=== PATIENT | female | born 1960 | race Caucasian/White ===

== ENCOUNTER 2023-04-18 17:06 | Outpatient (OUT) | payer OTHER, SELFPAY ==
--- NOTE | 2023-04-18 | XR_ITS ---
The [address] [address] Patient Name: CASS ANDERSON MRN: [id number] date: 1960 Sex: F Assigned Patient Location: [facility] Current Patient Location: ED.MAIN Accession/Order Number: [id number] Exam Date: 04/18/2023 17:20 Report Date: 04/18/2023 18:16 At the request of: YAO HARRINGTON Procedure: XR thoracic spine 3V EXAM: XR thoracic spine 3V, XR lumbar spine 2-3V HISTORY: M54.50, back pain COMPARISON: 12/30/2019 TECHNIQUE: Routine views of the XR thoracic spine 3V, XR lumbar spine 2-3V FINDINGS: Anatomy: 12 rib-bearing thoracic segments. 5 non rib-bearing lumbar segments. Bones: No acute fracture or dislocation. No suspicious lytic or sclerotic lesion. Mild multilevel thoracic disc and endplate degeneration. Moderate L4-S1 facet hypertrophy. Mild L5-S1 disc height loss. Other: Aortic atherosclerosis. XR/XR thoracic spine 3V IMPRESSION: Mild to moderate thoracic lumbar spondylosis without acute findings. Electronically authenticated by: ANTONETTE FARRELL Date: 04/18/2023 18:16
--- NOTE | 2023-04-18 | XR_ITS ---
The [address] [address] Patient Name: CASS ANDERSON MRN: [id number] date: 1960 Sex: F Assigned Patient Location: [facility] Current Patient Location: ED.MAIN Accession/Order Number: [id number] Exam Date: 04/18/2023 17:20 Report Date: 04/18/2023 18:15 At the request of: YAO HARRINGTON Procedure: XR knee ELDA 4V EXAMINATION: XR knee ELDA 4V, , 04/18/2023 5:20 PM EDT INDICATION: M25.562, Elda knee pain HISTORY: Ordering Provider Reason for Exam: M25.562, Elda knee pain Technologist Note: Additional: COMPARISON: None. TECHNIQUE: Bilateral knee x-ray: 8 view(s). FINDINGS: No acute fracture. Joint alignment is anatomic. Mild tricompartment degenerative changes are seen bilaterally with patellofemoral joint compartment narrowing as well as tricompartmental subchondral sclerosis. No significant joint effusion. Soft tissues are within normal limits. XR/XR knee ELDA 4V IMPRESSION: No acute fracture or traumatic malalignment seen in bilateral knees. Mild bilateral degenerative changes. Electronically authenticated by: GÓMEZ MCINTOSH Date: 04/18/2023 18:15
--- NOTE | 2023-04-18 | XR_ITS ---
The [address] [address] Patient Name: CASS ANDERSON MRN: [id number] date: 1960 Sex: F Assigned Patient Location: [facility] Current Patient Location: .MAIN Accession/Order Number: [id number] Exam Date: 04/18/2023 17:20 Report Date: 04/18/2023 18:16 At the request of: YAO HARRINGTON Procedure: XR lumbar spine 2-3V EXAM: XR thoracic spine 3V, XR lumbar spine 2-3V HISTORY: M54.50, back pain COMPARISON: 12/30/2019 TECHNIQUE: Routine views of the XR thoracic spine 3V, XR lumbar spine 2-3V FINDINGS: Anatomy: 12 rib-bearing thoracic segments. 5 non rib-bearing lumbar segments. Bones: No acute fracture or dislocation. No suspicious lytic or sclerotic lesion. Mild multilevel thoracic disc and endplate degeneration. Moderate L4-S1 facet hypertrophy. Mild L5-S1 disc height loss. Other: Aortic atherosclerosis. XR/XR lumbar spine 2-3V IMPRESSION: Mild to moderate thoracic lumbar spondylosis without acute findings. Electronically authenticated by: ANTONETTE FARRELL Date: 04/18/2023 18:16
== END 2023-04-18 17:07 | disposition home or self-care (01) ==
PROVIDERS: PCP Nurse Practitioner; Visit Provider Nurse Practitioner
DX: M54.50 Low back pain, unspecified (principal); M25.561 Pain in right knee; M25.562 Pain in left knee; M47.815 Spondylosis without myelopathy or radiculopathy, thoracolumbar region
CPT/HCPCS: 72072; 72100; 73564

== ENCOUNTER 2023-04-18 17:40 | Emergency (ER) | payer OTHER, SELFPAY ==
[2023-04-18 17:45] VITALS: BP 144/85; PULSE 74; RESP 22; TEMP 36.5; O2SAT 95; BMI 54.1
--- NOTE | 2023-04-18 18:05 | ED.BACK1 ---
HPI - Back Pain/Injury General Chief Complaint: Back Pain/Injury Stated Complaint: Back Pain Time Seen by Provider: 04/18/23 17:57 Source: patient Mode of arrival: Wheelchair History of Present Illness HPI Narrative: this patient's here with what appears to be chief complaint of upper thoracic back pain. She drove herself here to the hospital. She states that she was trying to get ready to come to the hospital to have some outpatient x-rays when she had to reach forward and grabbed a coffee table in front of her confront her from falling. She is very emphatic in the fact that she did not fall sure merrily reached out with both her arms to brace herself against the table. She has chronic pain is under the care of both a primary care doctor and she formerly has seen pain management in the past as well. She does not have a new paresis paresthesias tingling or numbness. Her pain is in the upper thoracic area. She does not have any pain or discomfort rating down into her arms today. She apparently did come to the hospital and when I review her x-ray folder she in fact had thoracic spine x-ray the and lumbars. Related Data Allergies Allergy/AdvReac Type Severity Reaction Status Date / Time ibuprofen [From Motrin] AdvReac Unknown Verified 04/18/23 17:51 Penicillins AdvReac Unknown Verified 04/18/23 17:51 Exam Narrative Exam Narrative: awake alert oriented ?3 normal cognition. She is here by herself. Overall she does not appear in acute distress but she moves about with guarded fashion. She has somewhat of a frail constitution. Otherwise on up for ENT examination is no craniofacial trauma injury or falls. She has unrestricted cervical range of motion. Examining the back there is no abrasions contusions erythema or swelling. Even the lightest of palpation in the parathoracic upper thoracic area is the area of discomfort. Her breath sounds are normal bilaterally. Heart rate and rhythm are normal. Her neurological examination upper limbs is normal with reflexes strength motor examination all normal to both upper extremities. lamination was focused to her area symptomatic complaint that started today. She has a number of other chronic medical conditions are being treated by her physician who ordered the patient's x-rays that she had done before she came to the Emergency Room today. Constitutional Vital Signs, click to edit/add: Last Vital Signs Temp 97.7 F 04/18/23 17:45 Pulse 74 04/18/23 17:45 Resp 22 04/18/23 17:45 BP 144/85 H 04/18/23 17:45 Pulse Ox 95 04/18/23 17:45 O2 Del Method Room Air 04/18/23 17:45 Course Vital Signs Vital signs: Vital Signs Temperature 97.7 F 04/18/23 17:45 Pulse Rate 74 04/18/23 17:45 Respiratory Rate 22 04/18/23 17:45 Blood Pressure 144/85 H 04/18/23 17:45 Pulse Oximetry 95 04/18/23 17:45 Oxygen Delivery Method Room Air 04/18/23 17:45 Temperature 97.7 F 04/18/23 17:45 Pulse Rate 74 04/18/23 17:45 Respiratory Rate 22 04/18/23 17:45 Blood Pressure 144/85 H 04/18/23 17:45 Pulse Oximetry 95 04/18/23 17:45 Oxygen Delivery Method Room Air 04/18/23 17:45 MDM - Back Pain/Injury Medical Records Medical records narrative: I reviewed her thoracic spine x-rays that were done as an outpatient before the Emergency Room visit knee appeared to be normal with minor degenerative changes. Some information was relayed to the patient. I believe she has a thoracic strain secondary to her sudden movement. She did not have a fall. Discharge Plan Discharge Chief Complaint: Back Pain/Injury Clinical Impression: Acute thoracic myofascial strain Patient Disposition: Home, Self-Care Time of Disposition Decision: 18:10 Additional Instructions: apply cold packs to the area for twenty minutes three times a day for two days. Then change to heat. Follow-up with primary care doctor. May use [id number] Tylenol and ibuprofen area Stand Alone Forms: Portal Instructions Referrals: Bethanie Donald [Primary Care Provider] - 1 week
== END 2023-04-18 18:24 | disposition home or self-care (01) ==
PROVIDERS: Emergency Provider Emergency Medicine Emergency Medical Services; PCP Nurse Practitioner
DX: S29.012A Strain of muscle and tendon of back wall of thorax, initial encounter (principal); X50.9XXA Other and unspecified overexertion or strenuous movements or postures, initial encounter; M54.50 Low back pain, unspecified; M25.561 Pain in right knee; M25.562 Pain in left knee; M47.815 Spondylosis without myelopathy or radiculopathy, thoracolumbar region
CPT/HCPCS: 72072; 72100; 73564; 99283

== ENCOUNTER 2023-07-04 15:43 | Outpatient (OUT) | payer OTHER, SELFPAY ==
--- NOTE | 2023-07-04 16:15 | MM_ITS ---
Patient Name: CASS ANDERSON MR#: [id number] : 1960 Exam Date: 07/04/2023 Ordering Doctor: HORACE Donald CNP RADIOLOGY REPORT PROCEDURE: MM SCREENING MAMMO BI COMPARISON: MG MAMM SCREEN ELDA W CAD, 04/29/2020. MG MAMM SCREEN ELDA W CAD, 08/11/2017. MG MAMM ELDA SCRN W CAD DIG, 04/28/2016. MG MAMM ELDA SCRN W CAD DIG, 05/14/2013. INDICATIONS: screening Calculator Name NCI Breast Cancer Risk Assessment Tool 5 Year Breast Cancer Risk 1.90% Lifetime Breast Cancer Risk 8.40% Personal Breast Cancer No Personal Ovarian Cancer No Treatments Cyrotherapy Family Cancers Aunt-maternal with breast cancer at age 20. LOCATION: [facility] BREAST COMPOSITION: Almost entirely fatty. FINDINGS: DIAGNOSTIC CATEGORY 1--NEGATIVE. RIGHT BREAST: No significant suspicious finding. No significant change has occurred. LEFT BREAST: No significant suspicious finding. No significant change has occurred. RECOMMENDATIONS: ROUTINE MAMMOGRAM AND CLINICAL EVALUATION IN 12 MONTHS. PLEASE NOTE: A NORMAL MAMMOGRAM DOES NOT EXCLUDE THE POSSIBILITY OF BREAST CANCER. A CLINICALLY SUSPICIOUS PALPABLE LUMP SHOULD BE BIOPSIED. Dictated by: Samuel Garcia M.D. on 07/06/2023 at 07:21 Approved by: Samuel Garcia M.D. on 07/06/2023 at 07:31
== END 2023-07-04 15:44 | disposition home or self-care (01) ==
LOC: MAMMO 15:43
PROVIDERS: PCP Nurse Practitioner; Visit Provider Nurse Practitioner
DX: Z12.31 Encounter for screening mammogram for malignant neoplasm of breast (principal); Z80.3 Family history of malignant neoplasm of breast
CPT/HCPCS: 77067

== ENCOUNTER 2024-10-29 13:57 | Outpatient (OUT) | payer MEDICARE, SELFPAY ==
--- NOTE | 2024-10-29 14:02 | MM_ITS ---
Patient Name: CASS ANDERSON MR#: [id number] : 1960 Exam Date: 10/29/2024 Ordering Doctor: HORACE Donald CNP RADIOLOGY REPORT PROCEDURE: MM TOMOSYNTHESIS SCREENING BI COMPARISON: MM SCREENING MAMMO BI, 07/04/2023. MG MAMM SCREEN ELDA W CAD, 04/29/2020. MG MAMM SCREEN ELDA W CAD, 08/11/2017. MG MAMM ELDA SCRN W CAD DIG, 05/14/2013. INDICATIONS: Screening Calculator Name NCI Breast Cancer Risk Assessment Tool 5 Year Breast Cancer Risk 1.90% Lifetime Breast Cancer Risk 8.10% Personal Breast Cancer No Personal Ovarian Cancer No Treatments Cyrotherapy Family Cancers Aunt-maternal with breast cancer at age 20. LOCATION: [facility] BREAST COMPOSITION: The breasts are almost entirely fatty. FINDINGS: RIGHT BREAST: No significant suspicious finding. LEFT BREAST: No significant suspicious finding. DIAGNOSTIC CATEGORY 1--NEGATIVE. RECOMMENDATIONS: ROUTINE MAMMOGRAM AND CLINICAL EVALUATION IN 12 MONTHS. PLEASE NOTE: A NORMAL MAMMOGRAM DOES NOT EXCLUDE THE POSSIBILITY OF BREAST CANCER. A CLINICALLY SUSPICIOUS PALPABLE LUMP SHOULD BE BIOPSIED. Dictated by: Corey Kowalski DO on 10/30/2024 at 08:14 Approved by: Corey Kowalski DO on 10/30/2024 at 08:19
== END 2024-10-29 13:58 | disposition home or self-care (01) ==
LOC: MAMMO 13:57
PROVIDERS: PCP Nurse Practitioner; Visit Provider Nurse Practitioner
DX: Z12.31 Encounter for screening mammogram for malignant neoplasm of breast (principal); Z80.3 Family history of malignant neoplasm of breast
CPT/HCPCS: 77063; 77067